=== PATIENT | male | born 1980 | race Caucasian/White ===

== ENCOUNTER → 2019-01-07 | Outpatient (CLI) | payer BC ==
--- NOTE | 2019-01-07 15:07 | KCIC ---
STUDY: MRI of the left shoulder without contrast INDICATION: Acute left shoulder pain. Tendinitis. No known injury. Limited range of motion. COMPARISON: None. TECHNIQUE: Multiplanar MR imaging of the left shoulder performed without the use of intravenous or intra-articular contrast. FINDINGS: Patient body habitus required use of a nonoptimal coil. Additionally, motion degraded study due to patient discomfort despite repeat sequence acquisition. AC joint: Mild AC joint arthrosis. No findings of subacromial subdeltoid bursitis. Rotator cuff: No full-thickness or high-grade rotator cuff tear. Findings of mild supraspinatus tendinosis. Evaluation for subtle low-grade tears is limited due to motion. The subscapularis is intact. Normal rotator cuff musculature signal and bulk. Labrum: Degraded secondary to motion. No large tear identified. Long head biceps tendon: Intact and normally located. Cartilage: Not well evaluated. No discrete full-thickness defect. Bones: Heterogeneous marrow signal without aggressive features. No acute fracture. Miscellaneous: No shoulder joint effusion. No axillary adenopathy. Impression: 1. Limited study due to motion degradation as well as patient body habitus requiring use of a nonoptimal coil. 2. Taking into consideration the above limitations, no acute internal disruption seen at the left shoulder. Mild appearing supraspinatus tendinosis. No large labral tear is readily appreciated in the long head biceps tendon is normally located. 3. Mild AC joint arthrosis. Electronically signed by: MARICRUZ TORRES MD (01/07/2019 3:04 PM) [id number]
== END | disposition home or self-care (01) ==
LOC: KCIC MRI 10:30
PROVIDERS: ATTEND Physician Assistant Medical
DX: M19.012 Primary osteoarthritis, left shoulder (principal); M75.82 Other shoulder lesions, left shoulder; M77.8 Other enthesopathies, not elsewhere classified
CPT/HCPCS: 73221